=== PATIENT | female | born 1990 | race Caucasian/White ===

== ENCOUNTER 2018-05-25 14:42 | Emergency (ER) | payer OTHER ==
[2018-05-25] MEDS ORDERED: IBUPROFEN 600 MG TAB PO ONE ×2 (15:17→15:19)
--- NOTE | 2018-05-25 15:24 | EDPHY ---
H & P Time Seen by Provider: 05/25/18 15:16 HPI/ROS: CHIEF COMPLAINT: Left hand lacerations HISTORY OF PRESENT ILLNESS: 28-year-old female was at work when she slipped was she was carrying a plate and a mug resting on the top of the plate. She fell backwards striking the back of her head on the refrigerator and then landing on her buttocks. She lacerated her left hand on broken pieces of the plate on the floor. Patient denies any significant head injury. She denies loss of consciousness, posterior head pain, laceration, or hematoma. No neck pain. No pain except in her left hand where there are 2 lacerations. Patient was otherwise well prior to the event. REVIEW OF SYSTEMS: Aside from elements discussed in the HPI, a comprehensive 10-point review of systems was reviewed and is negative. PAST MEDICAL HISTORY: Hypothyroidism. SOCIAL HISTORY: On-the-job injury. Nonsmoker. VITAL SIGNS: see nurse's notes. GENERAL: Well-developed, well-nourished, in no acute distress. HEENT: Normal, no facial trauma. No head trauma. Neck is supple, no midline tenderness to palpation. Full range of motion. LUNGS: Lungs are clear. No respiratory distress. CARDIAC: Regular rate and rhythm. ABDOMEN: Soft, nontender, nondistended, bowel sounds normal. BACK: No CVA tenderness. No vertebral tenderness. EXTREMITIES: Focused exam of the left hand: 0.5 cm laceration is present on the palmar aspect over the hypothenar eminence. Bleeding is well controlled. Laceration extends only into the subcutaneous fat. No foreign body sensation felt. Ring finger: There is a 1 cm laceration on the radial aspect of the 4th digit, just proximal to the PIP joint. Motor strength at the MCP, PIP, and the IP joints are normal in the 4th finger. Brisk capillary refill. Sensation intact throughout. NEURO: Alert and oriented, grossly nonfocal. SKIN: Warm and dry, no rash. Smoking Status: Never smoked Constitutional: Initial Vital Signs Temperature (C) 36.9 C 05/25/18 14:47 Heart Rate 85 05/25/18 14:47 Respiratory Rate 16 05/25/18 14:47 Blood Pressure 136/91 H 05/25/18 14:47 O2 Sat (%) 98 05/25/18 14:47 O2 Delivery Mode Room Air Allergies/Adverse Reactions: ?antibiotic Allergy (Uncoded 05/25/18 14:54) Home Medications: Medication Instructions Recorded Adderall 10 MG (*) 05/25/18 Levothyroxine 05/25/18 MDM/Departure - MDM Medications Given: Discontinued Medications Ibuprofen (Motrin) 600 mg PO EDNOW ONE Stop: 05/25/18 15:20 Last Admin: 05/25/18 15:20 Dose: 600 mg ED Course/Re-evaluation: Procedure: Laceration repair. The 1 cm laceration on the 4th digit, radial aspect was anesthetized using Marcaine. The wound was cleaned and irrigated per nursing and tech documentation. Laceration was then draped and explored. There were no deep structures involved. No tendon injury was identified. The wound was repaired with 5 0 Ethilon, simple interrupted #3. The wound repair was simple. The procedure was performed by myself. Patient is aware the laceration will have a scar. Patient would prefer no sutures in the palmar laceration. I believe this is quite reasonable. The wound is not bleeding. It was irrigated. Gentle exploration with curved hemostats demonstrates no foreign body felt. Patient's traction regarding wound care and signs of infection. Also discussed possibility of foreign body which was not visualized or felt. She will follow up as directed. Differential Diagnosis: Differential diagnosis for the patient's injury was considered including but not limited to contusion, abrasion, laceration, fracture, open fracture, or dislocation. - Depart Disposition: Home, Routine, Self-Care Clinical Impression: Laceration Condition: Good Instructions: Laceration (ED), Finger Laceration (ED) Additional Instructions: Keep wound clean and dry. Clean suture line with a mixture of hydrogen peroxide and water. Apply a thin layer of antibiotic cream. Dress wound if desired. Suture removal in 10 days. Watch for signs of infection. No soaking wound in water. Showers are ok. No swimming until sutures are removed. Use ibuprofen as needed for pain. Return to emergency department if any concerns regarding infection. Work Related Injury: Date of Injury (if different from Date of Service): Your work restrictions, if any, last only until the next business day. Formal evaluation for work restrictions beyond one day must be arranged through your employer's workman's compensation provider. Restrictions are noted below: []Return to work today. []Return to work on your next scheduled shift. []No work until reexamined. []Return to limited work today. [XX]Return to limited work on your next scheduled shift. No soaking hands in water. No handling food unless laceration is covered. []Weight lifting restriction to [] pounds. []No bending, climbing, or stooping. []No prolonged standing or walking. []No work near moving machinery. []Right/Left hand work only. Referrals: NEGRITA AMADOR [Primary Care Provider] - As per Instructions
[2018-05-25 16:02] VITALS: BP 121/62
== END 2018-05-25 16:00 | disposition home or self-care (01) ==
LOC: CED 14:42
PROC: 0HQGXZZ Repair Left Hand Skin, External Approach (ICD-10-PCS; principal; 2018-05-25)
DX: S61.412A Laceration without foreign body of left hand, initial encounter (principal); W01.118A Fall on same level from slipping, tripping and stumbling with subsequent striking against other sharp object, initial encounter; Y92.511 Restaurant or cafe as the place of occurrence of the external cause; Y93.89 Activity, other specified; Y99.0 Civilian activity done for income or pay